=== PATIENT | female | born 1960 | race Caucasian/White ===

== ENCOUNTER 2018-06-19 15:14 | Emergency (ER) | payer BC ==
--- NOTE | 2018-06-19 15:39 | EDM.PDOC ---
ED HPI GENERAL MEDICAL PROBLEM - General Chief Complaint: Gastrointestinal Problem Stated Complaint: VOMITING NOT HAVING BOWEL MOVEMENT Time Seen by Provider: 06/19/18 15:29 Source of Information: Reports: Patient, RN Notes Reviewed History Limitations: Reports: No Limitations - History of Present Illness INITIAL COMMENTS - FREE TEXT/NARRATIVE: Patient is a 58-year-old female who presents to the ED today for the evaluation of possible bowel obstruction. The patient states that last Monday she started her colonoscopy prep for her scope the next day. She states that the GoLYTELY that they gave her would not stay down at this time. She kept vomiting this back up. She states that she has not had a regular bowel movement in what she thinks over one week. She also states that she is not able to have a bowel movement unless she uses suppositories. She has been in touch with her primary care provider, Johanna Grant, and was told to take MiraLAX, Dulcolax, and magnesium citrate to see if this produced results. She states that she drank the whole bottle of magnesium citrate yesterday and had a very small diarrhea like bowel movement right as she was being checked into the ER. She states that she is having some nausea and vomiting with mild shortness of breath but denies any further diarrhea, fever/chills, chest pain. She also notes a rib injury around February time for which she was diagnosed with costochondritis and it does hurt to take a deep breath. The patient also notes an extensive abdominal surgery history including a cholecystectomy, appendectomy , hysterectomy (with complications needing drains). She was in touch with her primary care after she did all of these things that was asked of her and they told her that she should come to ER to make sure that she did not have a bowel obstruction at this time. Bilateral Upper Abdomen Pain Score (Numeric/FACES): 8 - Related Data Allergies Allergy/AdvReac Type Severity Reaction Status Date / Time No Known Allergies Allergy Verified 09/08/13 13:50 Home Meds: Home Meds Celecoxib 200 mg PO DAILY 06/19/18 [History] Piroxicam 20 mg PO DAILY 06/19/18 [History] Sertraline HCl 100 mg PO DAILY 06/19/18 [History] Temazepam 15 mg PO DAILY 06/19/18 [History] Venlafaxine HCl [Venlafaxine ER] 75 mg PO DAILY 06/19/18 [History] Social & Family History - Tobacco Use Smoking Status *Q: Never Smoker - Caffeine Use Caffeine Use: Reports: Energy Drinks - Recreational Drug Use Recreational Drug Use: No ED ROS GENERAL - Review of Systems Review Of Systems: See Below Constitutional: Reports: Decreased Appetite. Denies: Fever, Chills HEENT: Reports: No Symptoms Respiratory: Reports: Shortness of Breath. Denies: Cough Cardiovascular: Reports: No Symptoms Endocrine: Reports: No Symptoms GI/Abdominal: Reports: Abdominal Pain (mild diffuse cramping ), Constipation, Diarrhea, Decreased Appetite, Nausea, Vomiting. Denies: Distension, Flatus : Reports: No Symptoms Skin: Reports: Pallor Neurological: Reports: No Symptoms Psychiatric: Reports: No Symptoms Hematologic/Lymphatic: Reports: No Symptoms Immunologic: Reports: No Symptoms ED EXAM, GI/ABD - Physical Exam Exam: See Below Exam Limited By: No Limitations General Appearance: Alert, WD/WN, No Apparent Distress (Patient is ill-appearing , but no acute distress) Ears: Normal External Exam Nose: Normal Inspection Throat/Mouth: Normal Inspection, Normal Lips, Normal Teeth, Normal Oropharynx, Normal Voice, No Airway Compromise Head: Atraumatic, Normocephalic Neck: Normal Inspection Respiratory/Chest: No Respiratory Distress, Lungs Clear, Normal Breath Sounds, No Accessory Muscle Use, Chest Non-Tender Cardiovascular: Normal Peripheral Pulses, Regular Rate, Rhythm, No Murmur GI/Abdominal Exam: Soft, No Distention, No Mass, Guarding, Tender (mild diffuse tenderness throughout the entire abdomen), Abnormal Bowel Sounds (hyperactive, high pitched bowel tones in all 4 quadrants). No: Rebound Extremities: Normal Inspection, Normal Capillary Refill Neurological: Alert, Oriented, Normal Cognition, Normal Gait, No Motor/Sensory Deficits Psychiatric: Normal Affect, Normal Mood Skin Exam: Warm, Dry, Intact, No Rash, Pallor (generalized) Course - Vital Signs Last Recorded V/S: Last Vital Signs Temp 97.8 F 06/19/18 15:28 Pulse 102 H 06/19/18 15:28 Resp 18 06/19/18 15:28 BP 154/91 H 06/19/18 15:28 Pulse Ox 99 06/19/18 15:28 Orthostatic Blood Pressure [] 138/98 Orthostatic Blood Pressure [] 145/96 Orthostatic Blood Pressure [] 154/91 - Orders/Labs/Meds Orders: Active Orders 24 hr Category Date Time Status Peripheral IV Care [RC] . DIRECTED Care 06/19/18 15:50 Ordered Abdomen 2V AP Flat Upright [CR] Stat Exams 06/19/18 15:50 Ordered Sodium Chloride 0.9% [Saline Flush] Med 06/19/18 15:50 Active 10 ml FLUSH ASDIRECTED PRN NG [Nasogastric Orogastric Tube Insertion] [OM.PC] Oth 06/19/18 16:20 Ordered Routine Peripheral IV Insertion Adult [OM.PC] Routine Oth 06/19/18 15:50 Ordered Medication Orders Sodium Chloride (Saline Flush) 10 ml FLUSH ASDIRECTED PRN PRN Reason: Keep Vein Open Last Admin: 06/19/18 16:16 Dose: 10 ml Labs: Laboratory Tests 06/19/18 06/19/18 06/19/18 Range/Units 16:15 16:15 16:15 WBC 15.73 H (3.98-10.04) K/mm3 RBC 4.93 (3.98-5.22) M/mm3 Hgb 14.1 (11.2-15.7) gm/L Hct 43.9 (34.1-44.9) % MCV 89.0 (79.4-94.8) fl MCH 28.6 (25.6-32.2) pg MCHC 32.1 L (32.2-35.5) g/dl RDW Std Deviation 43.0 (36.4-46.3) fL Plt Count 307 (182-369) K/mm3 MPV 10.4 (9.4-12.3) fl Neutrophils % (Manual) 70 H (40-60) % Band Neutrophils % 0 (0-10) % Lymphocytes % (Manual) 8 L (20-40) % Atypical Lymphs % 0 % Monocytes % (Manual) 7 (2-10) % Eosinophils % (Manual) 14 H (0.7-5.8) % Basophils % (Manual) 1 (0.1-1.2) Platelet Estimate Adequate Plt Morphology Comment Normal RBC Morph Comment Not Reportable Sodium 139 (136-145) mEq/L Potassium 4.4 (3.5-5.1) mEq/L Chloride 98 (98-107) mEq/L Carbon Dioxide 32 (21-32) mEq/L Anion Gap 13.4 (5-15) BUN 12 (7-18) mg/dL Creatinine 0.8 (0.55-1.02) mg/dL Est Cr Clr Drug Dosing 86.30 mL/min Estimated GFR (MDRD) > 60 (>60) mL/min BUN/Creatinine Ratio 15.0 (14-18) Glucose 108 H (74-106) mg/dL Calcium 10.5 H (8.5-10.1) mg/dL Magnesium 2.6 H (1.8-2.4) mg/dl Total Bilirubin 0.8 (0.2-1.0) mg/dL AST 168 H (15-37) U/L ALT 293 H (14-59) U/L Alkaline Phosphatase 848 H (46-116) U/L C-Reactive Protein 11.7 H* (<1.0) mg/dL Total Protein 8.8 H (6.4-8.2) g/dl Albumin 3.4 (3.4-5.0) g/dl Globulin 5.4 gm/dL Albumin/Globulin Ratio 0.6 L (1-2) Meds: Medications Generic Name Dose Route Start Last Admin Trade Name Freq PRN Reason Stop Dose Admin Sodium Chloride 10 ml 06/19/18 15:50 06/19/18 16:16 Saline Flush FLUSH 10 ml ASDIRECTED PRN Administration Keep Vein Open Discontinued Medications Generic Name Dose Route Start Last Admin Trade Name Freq PRN Reason Stop Dose Admin Diatrizoate Meglum/Diatrizoate Sod 90 ml 06/19/18 17:05 06/19/18 17:37 Gastrografin 37% PO 06/19/18 17:06 90 ml ONETIME ONE Administration Iopamidol 100 ml 06/19/18 17:05 06/19/18 17:37 Isovue-370 (76%) IV 06/19/18 17:06 100 ml ONETIME ONE Administration Lidocaine HCl 10 ml 06/19/18 16:33 Xylocaine 2% Jelly MUCMEM 06/19/18 16:34 ONETIME ONE Ondansetron HCl 4 mg 06/19/18 16:20 06/19/18 16:33 Zofran IVPUSH 06/19/18 16:21 4 mg ONETIME ONE Administration - Re-Assessments/Exams Free Text/Narrative Re-Assessment/Exam: 06/19/18 16:04 Patient presents to the ED for the evaluation of a possible bowel obstruction. I have ordered 2 view abdomen x-rays, CBC and CMP for further evaluation. This is worrisome for a possible obstruction. 06/19/18 16:30 Patient's x-ray is done and reviewed with Dr. Cordon and is consistent with a possible small bowel obstruction, he recommends that a abdomen/pelvis CT with oral and IV contrast be done, along with NG tube insertion something for nausea and a magnesium level for further evaluation of her labs. I did order 4 mg IV Zofran and put in the magnesium level order. 06/19/18 19:[address] is done and the radiologist reads as follows: 1. Multiple low density lesions within both right and left lobes of the liver highly compatible with metastatic disease. Most likely primary is the pancreas as a pancreatic mass as noted which is compatible with pancreatic carcinoma. 2. Numerous air- fluid levels within the colon without dilatation of the colon most likely due to ileus. 3. Other incidental findings such as mild scoliosis within the spine and mild degenerative change. Departure - Departure Time of Disposition: 19:23 Disposition: Home, Self-Care 01 Condition: Fair Clinical Impression: Ileus - Discharge Information *PRESCRIPTION DRUG MONITORING PROGRAM REVIEWED*: No *COPY OF PRESCRIPTION DRUG MONITORING REPORT IN PATIENT RENEE: No Instructions: Ileus Referrals: Johanna Grant SOIL SPECIALIST [Primary Care Provider] - Forms: ED Department Discharge Additional Instructions: You have been evaluated in the ED today for your suspected bowel obstruction. You were CT scan did not show evidence of a small bowel obstruction, it is ileus in nature which is just a slowing of the bowels. Your CT scan did demonstrate some suspicious lesions in your pancreas and liver , these are suspicious for cancer in nature. Recommend that you follow up with your primary care provider by the end of this week so that you may initiate further management. Recommend a clear liquid diet for the next 24-48 hours with advance to bland as tolerated. You may take the Zofran 1 tab under your tongue every 8 hours as needed for nausea. You may take Tylenol 500 mg or 400-600 mg of ibuprofen every 6 hours as needed for pain. Please return to the ED if your symptoms change or worsen. - My Orders Last 24 Hours: My Active Orders 06/19/18 15:50 Peripheral IV Care [RC] . DIRECTED Abdomen 2V AP Flat Upright [CR] Stat Sodium Chloride 0.9% [Saline Flush] 10 ml FLUSH ASDIRECTED PRN Peripheral IV Insertion Adult [OM.PC] Routine 06/19/18 16:20 NG [Nasogastric Orogastric Tube Insertion] [OM.PC] Routine - Assessment/Plan Last 24 Hours: My Active Orders 06/19/18 15:50 Peripheral IV Care [RC] . DIRECTED Abdomen 2V AP Flat Upright [CR] Stat Sodium Chloride 0.9% [Saline Flush] 10 ml FLUSH ASDIRECTED PRN Peripheral IV Insertion Adult [OM.PC] Routine 06/19/18 16:20 NG [Nasogastric Orogastric Tube Insertion] [OM.PC] Routine
[2018-06-19] MEDS ORDERED: Sodium Chloride 0.9% 10 ML Syringe FLUSH PRN (15:50)
[2018-06-19] MEDS ORDERED: Ondansetron 4 MG/2 ML SDV IVPUSH ONE (16:20)
[2018-06-19] MEDS ORDERED: Lidocaine 2% Jelly 10 ML Urojet MUCMEM ONE (16:33)
[2018-06-19] MEDS ORDERED: Diatrizoate Meglumine/Diatrizoate Sodium 37% 120 ML Bottle PO ONE (17:05)
[2018-06-19] MEDS ORDERED: Iopamidol 755 Mg/ML 200 ML Bottle IV ONE (17:05)
--- NOTE | 2018-06-19 18:09 | CT ---
CT abdomen and pelvis Technique: Multiple axial sections were obtained from above the dome of the diaphragm inferiorly through the pubic symphysis. Intravenous and oral contrast was utilized. Delayed images were also obtained through the abdomen and pelvis. Comparison: Prior abdominal x-ray performed earlier the same day (4:05 PM). Findings: Visualized lung bases shows nothing acute. Multiple low density lesions are seen throughout the right and left lobes of the liver compatible with metastatic disease. Spleen appears within normal limits. Low density mass is identified within the body of the pancreas measuring 4.9 cm. There is distal dilatation of the main pancreatic duct. This is felt compatible with pancreatic carcinoma. Kidneys show symmetric contrast enhancement without hydronephrosis or mass. Multiple metallic densities are seen causing artifact or surgical clips. Aorta shows no aneurysm. No retroperitoneal adenopathy is seen. No mesenteric abnormalities are seen. No pelvic mass or adenopathy is seen. No bowel dilatation is seen. Fluid is noted within nondilated colon. No small bowel dilatation is seen. Delayed images shows contrast within the ureters and within the bladder. Bone window settings were reviewed which shows mild scoliosis within the spine and mild degenerative change. Impression: 1. Multiple low density lesions within both right and left lobes of the liver highly compatible with metastatic disease. Most likely primary is the pancreas as a pancreatic mass is noted which is compatible with pancreatic carcinoma. 2. Numerous air-fluid levels within colon without dilatation of the colon most likely due to ileus. 3. Other incidental findings as noted above. Diagnostic code #9
--- NOTE | 2018-06-20 06:42 | CR ---
Abdomen: Supine and upright views of the abdomen were obtained. Scattered gas within the colon is seen as well as several loops of gas within small bowel. No bowel dilatation is seen. Diffuse air-fluid levels are noted on the upright view. Surgical clips are seen from prior cholecystectomy. Slight degenerative change is noted within the spine with scoliosis. Additional surgical clips are seen within the right side of the pelvis. Impression: 1. Air-fluid levels within nondilated small bowel and colon raising the possibility of gastroenteritis. 2. Other incidental findings. Diagnostic code #3
== END 2018-06-19 19:48 | disposition home or self-care (01) ==
LOC: JD.ED 15:14
DX: K56.7 Ileus, unspecified (principal); Z79.899 Other long term (current) drug therapy
CPT/HCPCS: 36415; 74019; 74177; 80053; 83735; 85007; 85027; 86140; 96374; 99284; J2405; Q9963; Q9967

== ENCOUNTER 2019-03-29 20:52 | Emergency (ER) | payer BC ==
--- NOTE | 2019-03-29 21:06 | EDM.PDOC ---
ED HPI GENERAL MEDICAL PROBLEM - General Chief Complaint: Gastrointestinal Problem Stated Complaint: NAUSEA Time Seen by Provider: 03/29/19 21:05 - History of Present Illness INITIAL COMMENTS - FREE TEXT/NARRATIVE: 58-year-old female sent in from the [facility]. Patient has a history of advanced pancreatic cancer. She has had a lot of problems with nausea and vomiting but this really got worse over the last several days has not been able to keep anything down. When I was talking to her primary out at the [facility] I thought she mentioned some about a fever but with discussion with he is not aware of a fever. The patient feels weak and tired has worsening pain. Currently she is on a Duragesic patch 25 mcg Haldol 2 mg seems to work the best for nausea and vomiting. Evaluation done this morning shows an anion gap slightly elevated at 15.9 BUN 10 creatinine 0.8 CBC shows a white count of 20,440 76 % segs 4.5% lymphs. Upon arrival to the emergency room here the patient is tachycardic looks a little dry on exam weak and tired. She has had increased confusion. Abdomen Pain Score (Numeric/FACES): 6 - Related Data Allergies Allergy/AdvReac Type Severity Reaction Status Date / Time shellfish derived Allergy Anaphylactic Verified 03/29/19 21:08 Shock Home Meds: Home Meds Celecoxib 200 mg PO DAILY 06/19/18 [History] Ondansetron [Zofran ODT] 4 mg PO Q6H PRN #28 tab.dis 06/19/18 [Rx] Piroxicam 20 mg PO DAILY 06/19/18 [History] Sertraline HCl 100 mg PO DAILY 06/19/18 [History] Temazepam 15 mg PO DAILY 06/19/18 [History] Venlafaxine HCl [Venlafaxine ER] 75 mg PO DAILY 06/19/18 [History] Past Medical History HEENT History: Reports: Impaired Vision Gastrointestinal History: Reports: 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 Denies: Constipation, Diarrhea : Reports: No Symptoms Musculoskeletal: Reports: No Symptoms Skin: Reports: Dryness Neurological: Reports: Confusion ED EXAM, GI/ABD - Physical Exam Exam: See Below Exam Limited By: No Limitations General Appearance: Alert, No Apparent Distress Eyes: Bilateral: Normal Appearance Ears: Normal External Exam, Normal Canal, Hearing Grossly Normal, Normal TMs Nose: Normal Inspection Throat/Mouth: Normal Inspection, Other (Dry mucosa) Head: Atraumatic Neck: Normal Inspection, Supple. No: Lymphadenopathy (L), Lymphadenopathy (R) Respiratory/Chest: No Respiratory Distress, Lungs Clear, Normal Breath Sounds Cardiovascular: Regular Rate, Rhythm, No Edema, No Murmur Back Exam: Normal Inspection. No: CVA Tenderness (L), CVA Tenderness (R) Extremities: No Pedal Edema Neurological: Alert, Oriented Psychiatric: Normal Affect, Normal Mood Skin Exam: Warm, Dry, Intact, Normal Color, No Rash Lymphatic: No Adenopathy Course - Vital Signs Last Recorded V/S: Last Vital Signs Temp 36.6 C 03/29/19 21:08 Pulse 122 H 03/29/19 21:08 Resp 16 03/29/19 21:08 BP 141/105 H 03/29/19 21:08 Pulse Ox 99 03/29/19 21:08 - Orders/Labs/Meds Orders: Active Orders 24 hr Category Date Time Status CULTURE BLOOD [BC] Stat Lab 03/29/19 21:40 Received CULTURE BLOOD [BC] Stat Lab 03/29/19 22:11 Received CULTURE URINE [RM] Stat Lab 03/29/19 23:21 Ordered GENTAMICIN PEAK [CHEM] Timed Lab 03/31/19 06:30 Ordered GENTAMICIN TROUGH [CHEM] Timed Lab 03/31/19 05:30 Ordered Gentamicin 80 mg Med 03/30/19 06:00 Active Sodium Chloride 0.9% [Normal Saline] 100 ml IV Q8H Lactated Ringers [Ringers, Lactated] 1,000 ml Med 03/29/19 21:45 Active IV ASDIRECTED Pharmacy to Dose - Gentamicin Med 03/29/19 22:00 Pending 1 dose .XX ASDIRECTED Sodium Chloride 0.9% [Saline Flush] Med 03/29/19 21:23 Active 10 ml FLUSH ASDIRECTED PRN Blood Culture x2 Reflex Set [OM.PC] Stat Oth 01/03/20 21:22 Ordered Saline Lock Insert [OM.PC] Stat Oth 03/29/19 21:23 Ordered Medication Orders Gentamicin Sulfate (Pharmacy To Dose - Gentamicin) 1 dose .XX ASDIRECTED [facility] Lactated Ringer's (Ringers, Lactated) 1,000 mls @ 150 mls/hr IV ASDIRECTED [facility] Gentamicin Sulfate 80 mg/ (Sodium Chloride) 102 mls @ 204 mls/hr IV Q8H [facility] Stop: 04/08/19 22:29 Sodium Chloride (Saline Flush) 10 ml FLUSH ASDIRECTED PRN PRN Reason: Keep Vein Open Last Admin: 03/29/19 23:41 Dose: 10 ml Labs: Laboratory Tests 03/29/19 03/29/19 03/29/19 Range/Units 21:40 21:40 21:40 PT 13.1 H (9.7-12.0) SECONDS INR 1.22 Lactic Acid 1.5 (0.4-2.0) mmol/L C-Reactive Protein 25.9 H* (<1.0) mg/dL Amylase 20 L (25-115) U/L Lipase 49 L (73-393) U/L Urine Color (Yellow) Urine Appearance (Clear) Urine pH (5.0-8.0) Ur Specific [place] (1.005-1.030) Urine Protein (Negative) Urine Glucose (UA) (Negative) Urine Ketones (Negative) Urine Occult Blood (Negative) Urine Nitrite (Negative) Urine Bilirubin (Negative) Urine Urobilinogen (0.2-1.0) Ur Leukocyte Esterase (Negative) Urine RBC (0-5) /hpf Urine WBC (0-5) /hpf Ur Squamous Epith Cells (0-5) /hpf Urine Bacteria (FEW) /hpf Urine Mucus (FEW) /hpf 03/29/19 Range/Units 22:56 PT (9.7-12.0) SECONDS INR Lactic Acid (0.4-2.0) mmol/L C-Reactive Protein (<1.0) mg/dL Amylase (25-115) U/L Lipase (73-393) U/L Urine Color Audrey H (Yellow) Urine Appearance Slt cloudy H (Clear) Urine pH 5.5 (5.0-8.0) Ur Specific [place] 1.025 (1.005-1.030) Urine Protein 1+ H (Negative) Urine Glucose (UA) Negative (Negative) Urine Ketones 1+ H (Negative) Urine Occult Blood Negative (Negative) Urine Nitrite Positive H (Negative) Urine Bilirubin 2+ H (Negative) Urine Urobilinogen 4.0 H (0.2-1.0) Ur Leukocyte Esterase Negative (Negative) Urine RBC 0-5 (0-5) /hpf Urine WBC 0-5 (0-5) /hpf Ur Squamous Epith Cells 0-5 (0-5) /hpf Urine Bacteria Moderate H (FEW) /hpf Urine Mucus Few (FEW) /hpf Meds: Medications Generic Name Dose Route Start Last Admin Trade Name Shy PRN Reason Stop Dose Admin Gentamicin Sulfate 1 dose 03/29/19 22:00 Pharmacy To Dose - Gentamicin .XX ASDIRECTED [facility] Lactated Ringer's 1,000 mls @ 150 mls/hr 03/29/19 21:45 Ringers, Lactated IV ASDIRECTED [facility] Gentamicin Sulfate 80 mg/ 102 mls @ 204 mls/hr 03/30/19 06:00 Sodium Chloride IV 04/08/19 22:29 Q8H [facility] Sodium Chloride 10 ml 03/29/19 21:23 03/29/19 23:41 Saline Flush FLUSH 10 ml ASDIRECTED PRN Administration Keep Vein Open Discontinued Medications Generic Name Dose Route Start Last Admin Trade Name Shy PRN Reason Stop Dose Admin Fentanyl 500 mcg 03/29/19 21:30 03/29/19 22:46 Sublimaze IVPUSH 03/29/19 21:31 Not Given ONETIME ONE Fentanyl 50 mcg 03/29/19 22:45 Duragesic TRDERM Q72H [facility] Fentanyl 50 mcg 03/29/19 22:33 03/29/19 22:38 Sublimaze IVPUSH 03/29/19 22:34 50 mcg ONETIME ONE Administration Haloperidol Lactate 2 mg 03/29/19 21:26 03/29/19 22:35 Haldol IVPUSH 03/29/19 21:27 2 mg ONETIME ONE Administration Lactated Ringer's 1,000 mls @ 999 mls/hr 03/29/19 21:26 03/29/19 22:42 Ringers, Lactated IV 03/29/19 22:26 999 mls/hr .BOLUS ONE Administration Lactated Ringer's 1,000 mls @ 999 mls/hr 03/29/19 21:32 03/29/19 23:57 Ringers, Lactated IV 03/29/19 22:32 999 mls/hr .BOLUS ONE Administration Cefepime HCl 2 gm/ Premix 50 mls @ 100 mls/hr 03/29/19 21:55 03/29/19 23:16 IV 03/29/19 22:24 100 mls/hr ONETIME ONE Administration Gentamicin Sulfate 80 mg/ 102 mls @ 204 mls/hr 03/29/19 22:30 03/29/19 23:40 Sodium Chloride IV 03/29/19 22:59 204 mls/hr ONETIME ONE Administration - Re-Assessments/Exams Free Text/Narrative Re-Assessment/Exam: 03/29/19 22:14 Reviewed from this morning's labs her white count is 20,440 hemoglobin hematocrit of 12.1 and 39.3% respectively platelet count 197,000 automated differential reveals 76.2% neutrophils 4.5% lymphs manual shows 70% segs no bands 8% lymphs chemistries show sodium of 133 potassium 3.9 chloride 95 anion gap 15.9 BUN 10 creatinine 0.8 glucose 137 and calcium 9.6 alk phos 879 AST 106 ALT 69 total protein 7.9 albumin 2.6 globulin 5.3 amylase 18 lipase 56 urinalysis is pending lactate is pending the patient will receive a couple liters of LR anticipate starting cefepime and Vanco after blood and urine cultures obtained. 03/29/19 22:[address] Lama the on-call oncologist for Dr. Cagle who recommends the patient be transferred over there he agrees the patient should be reimaged but would prefer to do that in the morning over there. Case was then discussed with the hospitalist Dr. Feliciano the hospitalist who would like the patient to go through the emergency room first case discussed with Dr. Becker ER physician at [facility] in [place] who is the accepting physician. 03/30/19 00:15 Patient left the emergency department in satisfactory condition. I did phone and update to Dr. Becker regarding the lactic acid urinalysis and C-reactive protein. Second antibiotic is going at this time she is received 1 bolus of fluid her pulse dropped to 109 she is going to receive a second bolus in route and then start LR at 150 cc an hour Departure - Departure Time of Disposition: 22:23 Disposition: DC/Tfer to [facility] 02 Clinical Impression: Pancreatic cancer, Sepsis - Discharge Information Referrals: Johanna Grant NUCLEAR MEDICINE TECHNOLOGIST [Primary Care Provider] - Forms: ED Department Discharge Sepsis Event Note - Focused Exam Vital Signs: Vital Signs Temp Pulse Resp BP Pulse Ox 03/29/19 21:08 36.6 C 122 H 16 141/105 H 99 Date Exam was Performed: 03/30/19 Time Exam was Performed: 00:15 - My Orders Last 24 Hours: My Active Orders 03/29/19 21:22 Blood Culture x2 Reflex Set [OM.PC] Stat 03/29/19 21:23 Sodium Chloride 0.9% [Saline Flush] 10 ml FLUSH ASDIRECTED PRN Saline Lock Insert [OM.PC] Stat 03/29/19 21:40 CULTURE BLOOD [BC] Stat 03/29/19 21:45 Lactated Ringers [Ringers, Lactated] 1,000 ml IV ASDIRECTED 03/29/19 22:00 Pharmacy to Dose - Gentamicin 1 dose .XX ASDIRECTED 03/29/19 22:11 CULTURE BLOOD [BC] Stat 03/29/19 23:21 CULTURE URINE [RM] Stat - Assessment/Plan Last 24 Hours: My Active Orders 03/29/19 21:22 Blood Culture x2 Reflex Set [OM.PC] Stat 03/29/19 21:23 Sodium Chloride 0.9% [Saline Flush] 10 ml FLUSH ASDIRECTED PRN Saline Lock Insert [OM.PC] Stat 03/29/19 21:40 CULTURE BLOOD [BC] Stat 03/29/19 21:45 Lactated Ringers [Ringers, Lactated] 1,000 ml IV ASDIRECTED 03/29/19 22:00 Pharmacy to Dose - Gentamicin 1 dose .XX ASDIRECTED 03/29/19 22:11 CULTURE BLOOD [BC] Stat 03/29/19 23:21 CULTURE URINE [RM] Stat
[2019-03-29] MEDS ORDERED: Sodium Chloride 0.9% 10 ML Syringe FLUSH PRN (21:23)
[2019-03-29] MEDS ORDERED: Lactated Ringers 1,000 ML IV ONE ×2 (21:26→21:32)
[2019-03-29] MEDS ORDERED: Haloperidol Lactate 5 MG/ML SDV IVPUSH ONE (21:26)
[2019-03-29] MEDS ORDERED: fentaNYL 100 MCG/2 ML SDV IVPUSH ONE ×2 (21:30→22:33)
[2019-03-29] MEDS ORDERED: Lactated Ringers 1,000 ML IV SCH (21:45)
[2019-03-29] MEDS ORDERED: Cefepime 2 GM in Premix Bag 1 BAG IV ONE (21:55)
[2019-03-29] MEDS ORDERED: fentaNYL 50 MCG/HR Transdermal Patch TRDERM SCH (22:45)
== END 2019-03-29 23:59 ==
LOC: JD.ED 20:52
DX: C25.9 Malignant neoplasm of pancreas, unspecified (principal); A41.9 Sepsis, unspecified organism; F41.9 Anxiety disorder, unspecified; Z79.899 Other long term (current) drug therapy; Z91.013 Allergy to seafood
CPT/HCPCS: 36415; 81001; 82150; 83605; 83690; 85610; 86140; 87040; 87086; 96361; 96365; 96375; 99285; J0692; J1580; J1630; J3010; J7050; J7120; 99284